=== PATIENT | male | born 1960 | race Caucasian/White ===

== ENCOUNTER 2017-01-17 23:21 | Emergency (ER) | payer MEDICAID ==
[~2017-01-17] VITALS: Ht 177.8 cm; Wt 77.1 kg
[~2017-01-17 23:21] MED LIST: CEPH-570 PO; HYDR-3326 PO; SULF1TAB48 PO
[2017-01-18] MEDS ORDERED: OXYCODONE/APAP 5-325 MG TABLET PO ONE (00:15)
[2017-01-18] MEDS ORDERED: SULFAMETH/TRIMETH 800/160 MG TABLET PO ONE (00:15)
[2017-01-18] MEDS ORDERED: SULFAMETH/TRIMETH 800/160 MG TABLET ONE (00:21)
[2017-01-18] MEDS ORDERED: OXYCODONE/APAP 5-325 MG TABLET ONE (00:21)
--- NOTE | 2017-01-18 01:32 | NUR ---
Patient discharged to home, via taxi, in stable conditon. Written and verbal after care instructions given. Patient verbalizes understanding of instructions.
== END 2017-01-18 01:34 | disposition home or self-care (01) ==
LOC: ER 23:30
DX: S70.01XA Contusion of right hip, initial encounter (principal); S00.91XA Abrasion of unspecified part of head, initial encounter; L03.115 Cellulitis of right lower limb; F11.10 Opioid abuse, uncomplicated; G89.29 Other chronic pain; F17.200 Nicotine dependence, unspecified, uncomplicated; F19.10 Other psychoactive substance abuse, uncomplicated; Z88.6 Allergy status to analgesic agent; V19.49XA Pedal cycle driver injured in collision with other motor vehicles in traffic accident, initial encounter; Y93.89 Activity, other specified; Y99.8 Other external cause status; Y92.89 Other specified places as the place of occurrence of the external cause
CPT/HCPCS: 72170; 73502; 99284; 99406; A4663

== ENCOUNTER 2018-08-23 19:29 | Emergency (ER) | payer MEDICAID ==
[~2018-08-23] VITALS: Ht 180.3 cm; Wt 72.6 kg
[2018-08-23] MEDS ORDERED: IBUPROFEN 600 MG TABLET PO ONE (20:45)
[2018-08-23] MEDS ORDERED: IBUPROFEN 600 MG TABLET ONE (20:48)
--- NOTE | 2018-08-23 20:51 | NUR ---
Patient discharged to home in stable conditon. Written and verbal after care instructions given. Patient verbalizes understanding of instructions. Homeless patient waiver form signed by patient. Patient ambulated out of ER with stable gait. Patient provided with snacks/drinks.
[2018-08-23 20:56] VITALS: BP 106/68
== END 2018-08-23 20:59 | disposition home or self-care (01) ==
LOC: ER 19:31
DX: G89.29 Other chronic pain (principal); M54.2 Cervicalgia; M54.9 Dorsalgia, unspecified; B86 Scabies; F17.200 Nicotine dependence, unspecified, uncomplicated; Z88.8 Allergy status to other drugs, medicaments and biological substances; Z79.2 Long term (current) use of antibiotics; Z79.899 Other long term (current) drug therapy; Z79.891 Long term (current) use of opiate analgesic; Z59.0 Homelessness
CPT/HCPCS: A4663

== ENCOUNTER 2020-04-02 21:14 | Emergency (ER) | payer MEDICAID ==
[~2020-04-02] VITALS: Ht 180.3 cm; Wt 72.6 kg
[2020-04-02] MEDS ORDERED: OLANZAPINE 5 MG TABLET PO ONE ×2 (21:45)
[2020-04-02] MEDS ORDERED: diphenhydrAMINE 25 MG CAP PO ONE ×2 (21:45→21:48)
[2020-04-02] MEDS ORDERED: OLANZAPINE 5 MG TABLET ONE (21:48)
--- NOTE | 2020-04-02 22:27 | NUR ---
Patient discharged to home in stable condition. Written and verbal after care instructions given. Patient verbalizes understanding of instructions. Stressed follow up or return to ER for worsening s/s.
[2020-04-02 22:28] VITALS: BP 122/74
== END 2020-04-02 22:28 | disposition home or self-care (01) ==
LOC: ER 21:14
DX: F22 Delusional disorders (principal); F15.10 Other stimulant abuse, uncomplicated; F17.210 Nicotine dependence, cigarettes, uncomplicated; Z89.431 Acquired absence of right foot; G89.29 Other chronic pain; M54.9 Dorsalgia, unspecified; Z86.718 Personal history of other venous thrombosis and embolism; Z86.59 Personal history of other mental and behavioral disorders; G47.00 Insomnia, unspecified
CPT/HCPCS: 99283; 99406; Q0163; A4663

== ENCOUNTER 2021-06-19 12:59 | Emergency (ER) | payer MEDICAID ==
[~2021-06-19] VITALS: Ht 180.3 cm; Wt 72.6 kg
--- NOTE | 2021-06-19 13:24 | NUR ---
PT IS IN ROOM #2A. DR LOZANO EVALUATED THE PT.
[2021-06-19] MEDS ORDERED: KETOROLAC TROMETHAMINE 15 MG INJ IM ONE (13:30)
[2021-06-19] MEDS ORDERED: METHOCARBAMOL 500 MG TABLET PO ONE (13:30)
[2021-06-19] MEDS ORDERED: METH-806 PO (13:31)
[2021-06-19] MEDS ORDERED: METHOCARBAMOL 500 MG TABLET ONE (13:35)
[2021-06-19] MEDS ORDERED: KETOROLAC TROMETHAMINE 30 MG INJ ONE (13:35)
--- NOTE | 2021-06-19 13:45 | NUR ---
PT WAS D/C'd TO HOME. D/C INSTRUCTIONS GIVEN TO THE PT BY DR LOZANO.
[2021-06-19 13:46] VITALS: BP 132/88
== END 2021-06-19 13:47 | disposition home or self-care (01) ==
LOC: ER 13:30
DX: M54.9 Dorsalgia, unspecified (principal); G89.29 Other chronic pain; M54.2 Cervicalgia; Z89.431 Acquired absence of right foot; Z86.718 Personal history of other venous thrombosis and embolism; Z72.0 Tobacco use
CPT/HCPCS: A4663; J1885

== ENCOUNTER 2022-02-06 09:30 | Emergency (ER) | payer MEDICAID ==
[~2022-02-06] VITALS: Ht 180.3 cm; Wt 77.1 kg
[~2022-02-06 09:30] MED LIST changes: -CEPH-570 PO; -HYDR-3326 PO; +METH-806 PO; -SULF1TAB48 PO
--- NOTE | 2022-02-06 10:06 | NUR ---
Medical screening exam in progress.
[2022-02-06] MEDS ORDERED: LORAZEPAM 0.5 MG TABLET ONE (10:12)
[2022-02-06] MEDS ORDERED: LORAZEPAM 0.5 MG TABLET PO ONE (10:15)
--- NOTE | 2022-02-06 10:16 | NUR ---
Urine sent to lab.
[2022-02-06 10:26] LABS: *BILIRUBIN,URIN NEGATIVE (NEGATIVE); *BLOOD, URINE NEGATIVE (NEGATIVE); *CLARITY,URINE CLEAR (CLEAR); *COLOR,URINE YELLOW (YELLOW); *KETONES,URINE NEGATIVE (NEGATIVE); *UROBILINOGEN,URINE 0.2 E.U./dl (NORMAL); LEUKOCYTE ESTERASE ,URINE NEGATIVE (NEGATIVE); NITRITE, URINE NEGATIVE (NEGATIVE); UGLUCOSE NEGATIVE (NEGATIVE)
[2022-02-06 10:37] LABS: *AMPHETAMINE, URINE NEGATIVE (NEGATIVE); *CANNABINOID, URINE NEGATIVE (NEGATIVE); *COCCAINE, URINE NEGATIVE (NEGATIVE); *OPIATE, URINE NEGATIVE (NEGATIVE); *PHENCYCLIDINE SCREEN,URINE NEGATIVE (NEGATIVE)
[2022-02-06 10:38] LABS: HEMATOCRIT 42.4 % (36.7-47.1); MEAN CORPUSCULAR HEMOGLOBIN 31.1 uug (23.8-33.4); PLATELET COUNT (AUTO) 287 K/uL (152-348)
--- NOTE | 2022-02-06 10:38 | NUR ---
Paged PET Team to evaluate patient. Informed me to page in house social media marketing analyst. Contacted social media marketing analyst Asha. Awaiting call back,
[2022-02-06 10:46] LABS: CARBON DIOXIDE 23 mmol/L (21-32); CHLORIDE 102 mmol/L (98-107); CREATININE 0.7 mg/dL (0.6-1.3); GLUCOSE 118 mg/dL (74-106); UREA NITROGEN, BLOOD 17 mg/dL (7-18)
[2022-02-06 10:52] LABS: ALANINE AMINOTRANSFERASE 152 U/L (16-63); ALKALINE PHOSPHATASE 68 U/L (50-136); ASPARTATE AMINOTRANSFERASE 117 U/L (15-37); BILIRUBIN,DIRECT 0.1 mg/dL (0.0-0.2); BILIRUBIN,TOTAL 0.3 mg/dL (0.2-1.0); TOTAL PROTEIN, SERUM 7.6 g/dL (6.4-8.2)
[2022-02-06 10:53] LABS: ACETAMINOPHEN < 2.0 ug/mL (10-30)
[2022-02-06 10:55] LABS: ETHANOL 25 MG/DL (0-0)
--- NOTE | 2022-02-06 10:55 | NUR ---
ornamental metal worker apprentice, Asha, at bedside.
--- NOTE | 2022-02-06 12:31 | NUR ---
Social Work consult was requested for a patient in the emergency room for suicidal ideation. Patient is a 61-year-old male admitted to the emergency room for suicidal ideation. Patient is alert and oriented X3. Patient could not state the date. Patient presents with anxious mood and congruent affect. Patient presents with coherent, and goal directed thought process. SW explored patients support system. 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 Patient states that he was currently homeless and living in the [place] area. SW gave the patient resources and gave him the information for [facility] [place] [address] [place] [address] ([phone]) and [facility] [address] [place] [address] ([phone]). SW gave resources for [facility] [employer] [address] [address]. Resources were placed in the chart. Homeless waiver was signed and given to the patient and a copy was placed in the chart. Patient states he is currently unemployed and is planning on signing up for disability. Patient is independent with ADLs, does not have any medical equipment and is not currently driving. Patient denied history of substance abuse. Patient stated he has a history of psychiatric diagnosis of depression, schizophrenia, and ADHD. Patient states he is not currently seeing a psychiatrist or taking medication. Patient denied current hallucinations or delusions. SW assessed for suicidal or homicidal ideation. Patient states that he is currently having suicidal ideation. Patient states he has a plan and wanted to run into traffic. Patient denies homicidal ideation. SW provided emotional support and validation. Patient states he is open to going to [facility]. Addendum: 02/06/22 at 1533 by AFRICA MUNIZ Placed a call to Eric ([phone]) at [facility] for voluntary admit and faxed pt's clinical.
--- NOTE | 2022-02-06 16:47 | NUR ---
[facility] transport to arrive at 181.
--- NOTE | 2022-02-06 17:54 | NUR ---
Patient picked up by ambulance.
== END 2022-02-06 17:54 ==
LOC: ER 09:30
DX: R45.851 Suicidal ideations (principal); Z20.822 Contact with and (suspected) exposure to COVID-19; F17.200 Nicotine dependence, unspecified, uncomplicated; Z89.431 Acquired absence of right foot; F32.A Depression, unspecified; F11.90 Opioid use, unspecified, uncomplicated; Y90.1 Blood alcohol level of 20-39 mg/100 ml; R79.89 Other specified abnormal findings of blood chemistry; Z72.89 Other problems related to lifestyle
CPT/HCPCS: 36415; 85025; A4663; G0480

== ENCOUNTER 2022-02-10 19:36 | Emergency (ER) | payer SELFPAY ==
[~2022-02-10] VITALS: Ht 180.3 cm; Wt 81.6 kg
--- NOTE | 2022-02-10 20:00 | NUR ---
Patient walked to ER with steady gait. NAD noted
[2022-02-10] MEDS ORDERED: LORA2TAB95 PO (20:39)
[2022-02-10] MEDS ORDERED: LORAZEPAM 1 MG TABLET ONE (20:43)
[2022-02-10] MEDS ORDERED: LORAZEPAM 0.5 MG TABLET PO ONE (20:45)
--- NOTE | 2022-02-10 20:47 | NUR ---
Patient discharged to home in stable condition. Written and verbal after care instructions given. Patient verbalizes understanding of instructions. Stressed follow up or return to ER for worsening s/s. Patient is a/ox4, NAD noted. Patient is able to walk with steady gait
[2022-02-10 20:59] VITALS: BP 131/61
== END 2022-02-10 20:47 | disposition home or self-care (01) ==
LOC: ER 19:36
DX: G89.29 Other chronic pain (principal); M54.50 Low back pain, unspecified; M54.2 Cervicalgia; F17.210 Nicotine dependence, cigarettes, uncomplicated; M46.02 Spinal enthesopathy, cervical region; Z88.6 Allergy status to analgesic agent
CPT/HCPCS: A4663

== ENCOUNTER 2022-03-13 16:47 | Emergency (ER) | payer MEDICAID ==
[~2022-03-13] VITALS: Ht 185.4 cm; Wt 81.6 kg
[~2022-03-13 16:47] MED LIST changes: +LORA2TAB95 PO
[2022-03-13] MEDS ORDERED: LORAZEPAM 2 MG/1 ML VIAL ONE (17:29)
[2022-03-13] MEDS ORDERED: LORAZEPAM 2 MG/1 ML VIAL IM ONE (17:30)
== END 2022-03-13 17:43 | disposition home or self-care (01) ==
LOC: ER 16:49
DX: G89.29 Other chronic pain (principal); M54.2 Cervicalgia; F17.210 Nicotine dependence, cigarettes, uncomplicated; M48.02 Spinal stenosis, cervical region; M48.061 Spinal stenosis, lumbar region without neurogenic claudication
CPT/HCPCS: 99283; 96372; J2060; A4663

== ENCOUNTER 2022-04-06 10:55 | Emergency (ER) | payer MEDICAID ==
[~2022-04-06] VITALS: Ht 175.3 cm; Wt 81.6 kg
[2022-04-06 11:16] LABS: HEMATOCRIT 43.3 % (36.7-47.1); MEAN CORPUSCULAR HEMOGLOBIN 31.1 uug (23.8-33.4); MEAN CORPUSCULAR VOLUME 91.4 fL (73.0-96.2); PLATELET COUNT (AUTO) 274 K/uL (152-348)
[2022-04-06 11:30] LABS: ETHANOL 142 MG/DL (0-0)
[2022-04-06 11:43] LABS: ALANINE AMINOTRANSFERASE 266 U/L (16-63); ALKALINE PHOSPHATASE 74 U/L (50-136); ASPARTATE AMINOTRANSFERASE 126 U/L (15-37); BILIRUBIN,DIRECT < 0.1 mg/dL (0.0-0.2); CARBON DIOXIDE 24 mmol/L (21-32); CHLORIDE 103 mmol/L (98-107); GLUCOSE 145 mg/dL (74-106); POTASSIUM 3.8 mmol/L (3.5-5.1); TOTAL PROTEIN, SERUM 7.7 g/dL (6.4-8.2); UREA NITROGEN, BLOOD 12 mg/dL (7-18)
[2022-04-06 11:49] LABS: ACETAMINOPHEN < 10.0 ug/mL (10-30); BILIRUBIN,TOTAL < 0.1 mg/dL (0.2-1.0)
[2022-04-06] MEDS ORDERED: LORAZEPAM 1 MG TABLET ONE (11:51)
[2022-04-06] MEDS ORDERED: LORAZEPAM 0.5 MG TABLET PO ONE (12:00)
[2022-04-06] MEDS ORDERED: BUPRENORPHINE HCL 2 MG TAB.SUBL SL ONE ×3 (12:00→12:26)
[2022-04-06 12:35] LABS: *BILIRUBIN,URIN NEGATIVE (NEGATIVE); *BLOOD, URINE NEGATIVE (NEGATIVE); *CLARITY,URINE CLEAR (CLEAR); *COLOR,URINE YELLOW (YELLOW); *KETONES,URINE TRACE (NEGATIVE); *UROBILINOGEN,URINE 0.2 E.U./dl (NORMAL); LEUKOCYTE ESTERASE ,URINE NEGATIVE (NEGATIVE); NITRITE, URINE NEGATIVE (NEGATIVE); PH,URINE 5.5 (5.0-8.0); UGLUCOSE NEGATIVE (NEGATIVE)
--- NOTE | 2022-04-06 12:52 | NUR ---
gave pt lunch tray.
[2022-04-06 12:56] LABS: *AMPHETAMINE, URINE NEGATIVE (NEGATIVE); *CANNABINOID, URINE NEGATIVE (NEGATIVE); *COCCAINE, URINE NEGATIVE (NEGATIVE); *OPIATE, URINE NEGATIVE (NEGATIVE); *PHENCYCLIDINE SCREEN,URINE NEGATIVE (NEGATIVE)
[2022-04-06 13:18] LABS: BACTERIA,URINE FEW /HPF (NONE SEEN); RBC,URINE NONE SEEN /HPF (0-3); SQUAMOUS EPITHELIAL CELL,UR FEW /HPF (NONE SEEN); WBC,URINE 0-3 /HPF (0-3)
--- NOTE | 2022-04-06 15:25 | NUR ---
Cristiano Garcia: Pt is accepted at [facility] Room: 435A Acc. : Martir Report to: [phone] ext. [phone] [facility]: ETA for pick-up: 1640 to 1700
--- NOTE | 2022-04-06 16:18 | NUR ---
Clinical SW Note: Pt appeared alert and oriented x3. Pt denied suicidal and homicidal ideation. Pt stated he sees animated visuals but not at this time. Pt stated he does not recall what his auditory hallucinations say. Pt stated he is homeless and he stays on [address]. Pt was not able to provide further details. Pt stated he does not have any family contact. Pt's speech appeared unclear. Pt appeared drowsy. Pt was not able to answer further questions. Pt accepted the referrals this SW provided and asked for transportation. SW stated this movie writer will refer him to [facility] for further treatment and wait for an acceptance for today to [facility]. Pt is aware and agreeable. SW stated alternative plan for pt will include substance use treatment centers and additional resources listed below. Pt is aware and agreeable. SW provided patient with a copy of the [facility] homeless directory which provides information on locations for hot meals, sack lunches, food pantries, and showers. SW provided a list of mental health clinics: [facility] [address] [place] [address], ; [facility] [address] [place] [address], ; [facility] [address] [place] [address], ; a list of medical clinics: [facility] [address], [place]. [place], ; [facility] [address], [address], [place] [address]; [facility] [address] [place] [address], ; and a list of substance abuse programs: [facility] Substance Abuse Self-helpline ; [facility] ; [facility] ; [facility] ; [facility] ; [facility] [phone]; [facility] [phone]. Patient was unable to sign a homeless waiver form as pt appeared unable to comprehend. A copy was placed in the chart.
--- NOTE | 2022-04-06 16:25 | NUR ---
Pt refuses to go to [facility] due to distance. Wishes to be d/c'd. advised.
--- NOTE | 2022-04-06 16:41 | NUR ---
Gave pt d/c instructions, pt verbalized understanding.
[2022-04-06 16:49] VITALS: BP 118/69
== END 2022-04-06 16:54 | disposition home or self-care (01) ==
LOC: ER 10:55
DX: R45.851 Suicidal ideations (principal); U07.1 COVID-19; F19.139 Other psychoactive substance abuse with withdrawal, unspecified; F11.10 Opioid abuse, uncomplicated; F10.10 Alcohol abuse, uncomplicated; Y90.6 Blood alcohol level of 120-199 mg/100 ml; F31.9 Bipolar disorder, unspecified; F20.9 Schizophrenia, unspecified; G89.29 Other chronic pain; M48.02 Spinal stenosis, cervical region; M48.061 Spinal stenosis, lumbar region without neurogenic claudication; Z88.6 Allergy status to analgesic agent; F17.210 Nicotine dependence, cigarettes, uncomplicated; Z59.01 Sheltered homelessness
CPT/HCPCS: 36415; 71045; 85025; A4663; G0480

== ENCOUNTER 2022-08-03 17:46 | Inpatient (IN) | payer MEDICAID ==
[~2022-08-03] VITALS: Ht 177.8 cm; Wt 86.2 kg
--- NOTE | 2022-08-03 21:40 | NUR ---
Placed patient in room 4a at this time.
--- NOTE | 2022-08-03 22:03 | NUR ---
seen and examining by Dr. Edwards
[2022-08-03] MEDS ORDERED: IV NORMAL SALINE 1000 ML BAG IV ONE (22:30)
[2022-08-03] MEDS ORDERED: MORPHINE SULFATE 4 MG/1 ML DISP.SYRIN IV ONE (22:30)
[2022-08-03] MEDS ORDERED: CIPROFLOXACIN IV 400 MG in PREMIXED 1 EACH IV ONE (22:30)
[2022-08-03] MEDS ORDERED: MORPHINE SULFATE 4 MG/1 ML DISP.SYRIN ONE (22:43)
[2022-08-03 23:13] LABS: HEMATOCRIT 41.2 % (36.7-47.1); MEAN CORPUSCULAR HEMOGLOBIN 29.1 uug (23.8-33.4); MEAN CORPUSCULAR VOLUME 88.4 fL (73.0-96.2); PLATELET COUNT (AUTO) 266 K/uL (152-348)
--- NOTE | 2022-08-03 23:34 | NUR ---
currently in CT
[2022-08-03 23:37] LABS: CARBON DIOXIDE 27 mmol/L (21-32); CHLORIDE 100 mmol/L (98-107); GLUCOSE 85 mg/dL (74-106); POTASSIUM 4.4 mmol/L (3.5-5.1); UREA NITROGEN, BLOOD 26 mg/dL (7-18)
[2022-08-03 23:52] LABS: ALANINE AMINOTRANSFERASE 136 U/L (16-63); ALKALINE PHOSPHATASE 81 U/L (50-136); ASPARTATE AMINOTRANSFERASE 101 U/L (15-37); BILIRUBIN,DIRECT 0.2 mg/dL (0.0-0.2); BILIRUBIN,TOTAL 0.5 mg/dL (0.2-1.0); TOTAL PROTEIN, SERUM 8.5 g/dL (6.4-8.2)
--- NOTE | 2022-08-03 23:52 | NUR ---
Dr. Edwards ordered Levaquin 500mg, ROBBIE [facility] order
[2022-08-03] MEDS ORDERED: levoFLOXacin 500 MG/D5W 100 ML ONE (23:53)
--- NOTE | 2022-08-03 23:54 | NUR ---
IV Levaquin 500mg ordered, noted and carried out
--- NOTE | 2022-08-03 23:57 | NUR ---
back from CT, pt in bed, gave all due meds as ordered
[2022-08-04] LABS: LIPASE 75 U/L (73-393)
--- NOTE | 2022-08-04 07:20 | NUR ---
Received report from motel front desk attendant. Pt sleeping with eyes closed with no s/s of distress noted. Pt to have MRI ordered by per report.
[2022-08-04] MEDS ORDERED: levoFLOXacin 500 MG/D5W 100ML PIGGYBACK IV ONE (07:45)
--- NOTE | 2022-08-04 08:15 | NUR ---
Per he spoke with Hoda Garvey and pt has been accepted for admission to med/surg. Called for bed assignment, no beds availalbe.
--- NOTE | 2022-08-04 09:00 | NUR ---
SBAR report given to TIM Mcdaniel, pt to be admitted to m/s 2nd floor room 210. ER admitting notified and stated they have to call pt's HMO.
--- NOTE | 2022-08-04 10:00 | NUR ---
Pt trans to m/s room 210.
[2022-08-04] MEDS ORDERED: HYDROCODONE/APAP 5-325MG TABLET PO PRN (11:45)
[2022-08-04] MEDS ORDERED: INSULIN REGULAR, HUMAN 300 UNIT/3 ML VIAL SQ PRN (14:15)
[2022-08-04] MEDS ORDERED: ACETAMINOPHEN 325 MG TABLET PO PRN (14:15)
[2022-08-04] MEDS ORDERED: ONDANSETRON 4 MG/2 ML VIAL IV PRN (14:15)
[2022-08-04] MEDS ORDERED: REMEDY ESSENTIAL ZINC PASTE 113 GM TP PRN (14:15)
[2022-08-04] MEDS ORDERED: DEXTROSE 50% 50 ML DISP.SYRIN IV PRN (14:15)
[2022-08-04] MEDS ORDERED: MORPHINE SULFATE 2 MG/1 ML DISP.SYRIN IV PRN (14:15)
[2022-08-04] MEDS ORDERED: MAGNESIUM HYDROXIDE 30 ML LIQUID UDC PO PRN (14:15)
[2022-08-04] MEDS ORDERED: ENOXAPARIN SODIUM 40 MG/0.4 ML DISP.SYRIN SQ SCH (15:00)
[2022-08-04] MEDS ORDERED: levoFLOXacin 500 MG/D5W 500 MG in PREMIXED 1 EACH IV SCH (15:00)
--- NOTE | 2022-08-04 15:21 | NUR ---
Patient decided to leave AMA, despite education on diagnosis and plan of care. AMA form signed by patient and placed in chart. IV removed per protocol without complications. Patient escorted off unit.
[2022-08-04] MEDS ORDERED: BLOOD SUGAR DIAGNOSTIC 1 EACH STRIP VI SCH (16:30)
== END 2022-08-04 15:30 | disposition left against medical advice (07) | DRG 347 ==
LOC: ER 17:46 → MED 08-04 10:01
PROVIDERS: ADMIT Registered Nurse; ATTEND Registered Nurse
DX: M51.35 Other intervertebral disc degeneration, thoracolumbar region (principal); K74.60 Unspecified cirrhosis of liver; M48.05 Spinal stenosis, thoracolumbar region; E11.9 Type 2 diabetes mellitus without complications; H61.002 Unspecified perichondritis of left external ear; Z59.00 Homelessness unspecified; G89.29 Other chronic pain; K59.00 Constipation, unspecified; Z89.429 Acquired absence of other toe(s), unspecified side; F20.9 Schizophrenia, unspecified; F17.210 Nicotine dependence, cigarettes, uncomplicated; M50.30 Other cervical disc degeneration, unspecified cervical region; M48.02 Spinal stenosis, cervical region; F11.10 Opioid abuse, uncomplicated; F19.10 Other psychoactive substance abuse, uncomplicated; Z91.81 History of falling
CPT/HCPCS: 36415; 72125; 72131; 83605; 83690; 84484; 85025; 87040; A4663; G0378; J0744; J1815; J1956; J2270; J7040

== ENCOUNTER 2022-11-30 18:55 | Emergency (ER) | payer MEDICAID ==
[~2022-11-30] VITALS: Ht 180.3 cm; Wt 77.1 kg
--- NOTE | 2022-11-30 19:20 | NUR ---
Patient walked to ER c/o lump on LT side of neck that started about a year ago.
--- NOTE | 2022-11-30 19:23 | NUR ---
Dr Jason Back at bedside for MSE.
--- NOTE | 2022-11-30 19:36 | NUR ---
Patient discharged to home in stable condition. Written and verbal after care instructions given. Patient verbalizes understanding of instructions. Stressed follow up or return to ER for worsening s/s. All belongings with patient.
[2022-11-30 19:37] VITALS: BP 121/88
== END 2022-11-30 19:38 | disposition home or self-care (01) ==
LOC: ER 18:56
DX: R22.1 Localized swelling, mass and lump, neck (principal); G89.29 Other chronic pain; M54.2 Cervicalgia; M54.9 Dorsalgia, unspecified; F17.210 Nicotine dependence, cigarettes, uncomplicated; Z88.8 Allergy status to other drugs, medicaments and biological substances; Z79.899 Other long term (current) drug therapy
CPT/HCPCS: A4663